=== PATIENT | female | born 1955 | race Caucasian/White ===

== ENCOUNTER 2019-04-04 12:01 | Observation (INO) | payer OTHER, SELFPAY ==
[2019-04-04] MEDS ORDERED: IPRATROPIUM BROM 0.5MG/2.5ML ONE (13:37)
[2019-04-04] MEDS ORDERED: ALBUTEROL 2.5 MG/3 ML NEB SOL ONE (13:37)
[2019-04-04] MEDS ORDERED: KETOROLAC 30 MG/ML INJ ONE (13:38)
[2019-04-04] MEDS ORDERED: NA CHLORIDE 0.9% 1,000 ML ONE (13:38)
[2019-04-04] MEDS ORDERED: HYDROMORPHONE HCL 2 MG/ML inj ONE (13:38)
[2019-04-04] MEDS ORDERED: ONDANSETRON 4 MG/2 ML VIAL ONE (13:38)
--- NOTE | 2019-04-04 13:42 | RAD REPORT ---
EXAM DESCRIPTION: RAD - Wrist Left 3 View - 04/04/2019 1:31 pm CLINICAL HISTORY: Left wrist pain status post injury FINDINGS: Impaction comminuted fracture involves the distal left radius with angulation present at t he fracture site. There likely is disruption of the distal radioulnar joint
[2019-04-04 13:53] LABS: Absolute Lymphocytes (CBC) 0.8 K/uL (0.7-4.9); Basophils % 0.4 % (0-1.3); Hematocrit 42.3 % (36.0-45.0); Lymphocytes % 4.6 % (15.3-44.8); MPV 9.9 fL (7.6-11.3); RBC Red Blood Cell Count 4.56 M/uL (3.86-4.86)
[2019-04-04 14:16] LABS: Albumin 3.9 g/dL (3.4-5.0); Bilirubin Direct 0.2 mg/dL (0-0.2); Bilirubin Total 0.8 mg/dL (0.2-1.0); Protein, Total 6.9 g/dL (6.4-8.2)
[2019-04-04 14:41] LABS: Anisocytosis 1+; Blood Morphology Comment NOTED (NOT SEEN); Platelet Estimate ADEQ; Poikilocytosis 1+; Urine White Blood Cell Casts OK
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
--- NOTE | 2019-04-04 14:57 | RAD REPORT ---
EXAM DESCRIPTION: RAD - Shoulder Right 2 View - 04/04/2019 2:04 pm CLINICAL HISTORY: Right shoulder pain FINDINGS: No fracture or dislocation is seen.
[2019-04-04 17:00] LABS: Urine Blood 2+ (NEG); Urine Glucose NEGATIVE (NEG); Urine Protein 1+ (NEG)
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
[2019-04-04] MEDS ORDERED: NA CHLORIDE 0.9% 2,000 ML ONE (17:32)
[2019-04-04] MEDS ORDERED: CEFTRIAXONE/SWI 1gm 1 GM/10 ML SYR ONE (17:32)
[2019-04-04] MEDS ORDERED: ACETAMINOPHEN 325 MG TABLET PO PRN (20:54)
[2019-04-04] MEDS: NA CHLORIDE 0.9% 1,000 ML IV SCH (21:34)
[2019-04-04] MEDS: FAMOTIDINE 20 MG/2 ML VIAL IV SCH (21:35)
[2019-04-04] MEDS: MORPHINE 4 MG/ML SYR IV PRN (21:36)
[2019-04-04] MEDS: ONDANSETRON 4 MG/2 ML VIAL IV PRN (21:42)
[2019-04-04 22:32] VITALS: BMI 30.4
[2019-04-04 23:57] VITALS: O2SAT 99
[2019-04-05] MEDS: MORPHINE 4 MG/ML SYR IV PRN ×5 (03:07→23:25)
[2019-04-05] MEDS: ONDANSETRON 4 MG/2 ML VIAL IV PRN ×5 (03:07→23:24)
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
[2019-04-05] MEDS: NA CHLORIDE 0.9% 1,000 ML IV SCH ×4 (05:27→23:24)
[2019-04-05 06:11] LABS: Absolute Lymphocytes (CBC) 0.9 K/uL (0.7-4.9); Hematocrit 35.8 % (36.0-45.0); Lymphocytes % 17.8 % (15.3-44.8); MPV 10.2 fL (7.6-11.3); RBC Red Blood Cell Count 3.87 M/uL (3.86-4.86)
[2019-04-05 06:30] LABS: Albumin 2.9 g/dL (3.4-5.0); Alkaline Phosphatase 167 U/L (45-117); BUN Blood Urea Nitrogen 17 mg/dL (7-18); Bicarbonate 25 mmol/L (21-32); Bilirubin Direct 0.7 mg/dL (0-0.2); Bilirubin Total 1.3 mg/dL (0.2-1.0); Glucose Level 92 mg/dL (74-106); Lipase 88 U/L (73-393); Potassium 4.1 mmol/L (3.5-5.1); Protein, Total 5.5 g/dL (6.4-8.2); Sodium Level 145 mmol/L (136-145)
[2019-04-05 06:41] LABS: ALT/SGPT 327 U/L (12-78); AST/SGOT 488 U/L (15-37)
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
[2019-04-05] MEDS: FAMOTIDINE 20 MG/2 ML VIAL IV SCH ×2 (09:21→20:15)
--- NOTE | 2019-04-05 11:36 | EKG ---
Test Date: 2019-04-04 Test Time: 13:31:50 Counter Weigher: ROSI MEASUREMENT RESULTS: Intervals: Rate: 80 WA: 150 QRSD: 88 QT: 368 QTc: 424 [place]: P: 39 WA: 150 QRS: 49 T: 55 INTERPRETIVE STATEMENTS: Normal sinus rhythm Normal ECG No previous ECG available for comparison Electronically Signed On 04-05-19 11:33:47 CDT by Nick Leonard
[2019-04-05] MEDS: TRAMADOL 37.5mg/APAP 325mg PER TAB PO PRN (15:18)
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
[2019-04-06] MEDS: TRAMADOL 37.5mg/APAP 325mg PER TAB PO PRN ×2 (02:38→12:02)
[2019-04-06] MEDS: ONDANSETRON 4 MG/2 ML VIAL IV PRN ×2 (05:44→10:30)
[2019-04-06] MEDS: MORPHINE 4 MG/ML SYR IV PRN ×2 (05:44→09:36)
[2019-04-06] MEDS: FAMOTIDINE 20 MG/2 ML VIAL IV SCH (09:00)
[2019-04-06 12:43] VITALS: BP 100/56; TEMP 98.2
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
== END 2019-04-06 12:56 | disposition home or self-care (01) ==
LOC: ER 12:01 → ERHOLD 18:41 → 2ND 20:16
PROVIDERS: ADMIT Surgery; ATTEND Surgery
DX: S22.42XA Multiple fractures of ribs, left side, initial encounter for closed fracture (principal); S52.502A Unspecified fracture of the lower end of left radius, initial encounter for closed fracture; V43.62XA Car passenger injured in collision with other type car in traffic accident, initial encounter; F17.210 Nicotine dependence, cigarettes, uncomplicated
CPT/HCPCS: 96365; 96361; 93005; 85025 ×2; 80048 ×2; 36415; 86900; 86850; 86901; 80076 ×2; 81003; 83690 ×2; 70450; 72125; 71260; 74177; 71046; 73030; 73110; 97116; 97161; 97530; 94640; 96375; 99285; Q9967; J1170; J0696; J7030 ×6; J2405 ×8; G0378 ×4